=== PATIENT | male | born 1965 | race Caucasian/White ===

== ENCOUNTER → 2017-05-01 09:11 | Outpatient (CLI) | payer BC ==
[2014-10-17 07:42] VITALS: BMI 47.1
[~2017-05-01 09:11] MED LIST: ATIVAN1 MG PO; BAYER CHEWABLE81 MG PO; CARAFATE1 G PO; COZAAR100 MG PO; HCTZ25 MG PO; HYDROCODONE-APA1 TAB PO; K-TAB10 MEQ PO; NORVASC10 MG PO; PLAQUENIL200 MG PO; PRAVACHOL20 MG PO; PRILOSEC20 MG PO
== END | disposition home or self-care (01) ==
LOC: D.CT 09:11
DX: R91.1 Solitary pulmonary nodule (principal)

== ENCOUNTER → 2017-07-24 19:00 | Outpatient (CLI) | payer BC ==
[2014-10-17 07:42] VITALS: BMI 47.1
== END | disposition home or self-care (01) ==
LOC: D.SLEEP 19:00
DX: G47.33 Obstructive sleep apnea (adult) (pediatric) (principal)

== ENCOUNTER → 2017-08-09 08:22 | Outpatient (CLI) | payer BC ==
[2014-10-17 07:42] VITALS: BMI 47.1
[2017-08-10 10:16] LABS: IMMUNOGLOBULIN E 201 IU/mL (0-100)
[2017-08-11 12:14] LABS: ANGIOTENSIN CONVERTING ENZYME 24 U/L (14-82)
[2017-08-13 14:08] LABS: FUNGAL - ASP FLAVUS Negative (Neg:<1:1); FUNGAL - ASP NIGER Negative (Neg:<1:1); FUNGAL - ASPER FUMIGATUS Negative (Neg:<1:1)
== END | disposition home or self-care (01) ==
LOC: D.RT 08:00
PROVIDERS: Internal Medicine Pulmonary Disease
DX: R91.8 Other nonspecific abnormal finding of lung field (principal)

== ENCOUNTER → 2018-02-13 08:01 | Outpatient (CLI) | payer BC ==
[2014-10-17 07:42] VITALS: BMI 47.1
[2018-02-13 08:44] LABS: CREATININE - SERUM 0.8 mg/dL (0.6-1.3)
== END | disposition home or self-care (01) ==
LOC: D.CT 02-06 11:30
PROVIDERS: Internal Medicine Pulmonary Disease
DX: R91.8 Other nonspecific abnormal finding of lung field (principal); J45.909 Unspecified asthma, uncomplicated; R05 Cough

== ENCOUNTER → 2019-04-05 12:29 | Outpatient (CLI) | payer BC ==
[2014-10-17 07:42] VITALS: BMI 47.1
--- NOTE | 2019-04-10 02:11 | EC ---
PATIENT:FREDA CALHOUN DATE OF SERVICE: 04/05/19 SEX: M MEDICAL RECORD: [id number] DATE OF : 65 LOCATION:[facility] AGE OF PATIENT: 54 ADMISSION DATE: 04/05/19 REFERRING PHYSICIAN: INTERPRETING PHYSICIAN: JEFFREY NANCE MD ECHOCARDIOGRAM REPORT ECHO CHARGES 4 ECHO COMPLETE Date: 04/05/19 CLINICAL DIAGNOSIS: HTN/EDEMA ECHOCARDIOGRAPHIC MEASUREMENTS (adult normal given) AC root (d.<3.7cm) 3.2 cm LV Septum d (<1.2 cm> 1.5 cm Valve Excursion 1.9 cm LV Septum (systole) 1.7 cm Left Atria (s.<4.0cm> 5.1 cm LVPW d(<1.2cm) 1.7 cm RV (d.<2.3cm) 4.2 cm LVPW (sytole) 1.9 cm LV diastole(<5.6CM) 5.8 cm MV E-F(>70mm/sec) cm LV systole 3.8 cm LVOT Diameter 1.9 cm MV exc.(>10mm) 1.3 cm Est.ejection fraction (50-75%) % DOPPLER: LVIT cm/sec A 74.0 cm/sec E 103 cm/sec LA cm/sec RVSP 19 mmHg LVOT 115 cm/sec AOP1/2T m/s Asc. Ao 147 cm/sec RVOT 74 cm/sec RA cm/sec PA 111 cm/sec AV Gradient Peak 8.69 mmHg AV Mean 4.45 mmHg AV Area 2.8 cm MV Gradient Peak 7.79 mmHg MV Mean 2.37 mmHg MV Area cm COMMENTS: Combination Worker: Padmini STOREY Resident Athletic Trainer: 1 Dr. Nance TAPE# PACS Pericardial Effusion N DATE OF SERVICE: 04/05/2019 ECHOCARDIOGRAM FINDINGS: 1. Left ventricular chamber size is within normal limits. Left ventricular systolic function is normal at 60% to 65%. 2. Left atrium is enlarged at 5.1 cm. Right atrium and right ventricular chamber sizes are as well moderately dilated. 3. Valvular structures have normal structure and motion. ECHOCARDIOGRAM REPORT [id number] FREDA CALHOUN 4. Doppler interrogation reveals mild mitral regurgitation, trace tricuspid regurgitation, no other valvular insufficiency or stenosis. Pulmonary systolic pressure is estimated at 16 mmHg. 5. No evidence of pericardial effusion or left ventricular thrombus. TRANSINT:[id number] Voice Confirmation ID: [id number] DOCUMENT ID: [id number] JEFFREY NANCE MD at 0211 CC: [id number] DICTATION DATE: 04/05/19 1532 DICTAPHONE TYPIST: 04/05/19 1854 DEP CLI 04/05/19 [facility] [address] [id number]
== END | disposition home or self-care (01) ==
LOC: D.HCCARDIO 12:29
PROVIDERS: ATTEND Internal Medicine Interventional Cardiology
DX: I10 Essential (primary) hypertension (principal)